=== PATIENT | male | born 1975 | race Caucasian/White ===

== ENCOUNTER 2019-12-26 11:48 | Outpatient (CLI) | payer OTHER, SELFPAY ==
--- NOTE | ~2019-12-26 | XR_ITS ---
EXAMINATION: XR ankle RT min 3V DATE: 12/26/2019 12:15 INDICATION: Right ankle pain. Injury. TECHNIQUE: 4 views of right ankle were obtained. COMPARISON: None. FINDINGS: Bone alignment is normal. No fracture. There is a 12 mm osteochondral lesion of medial davi r dome. There are enthesophytes at the posterior and plantar aspects of calcaneal tuberosity. IMPRESSION: 1. Osteochondral lesion of medial talar dome. Reviewed, dictated and finalized at location A.
== END 2019-12-26 11:49 | disposition home or self-care (01) ==
LOC: ANHIMG 11:59
PROVIDERS: PCP Family Medicine; Visit Provider Physician Assistant
DX: M25.571 Pain in right ankle and joints of right foot (principal)
CPT/HCPCS: 73610

== ENCOUNTER 2020-10-16 05:08 | Emergency (ER) | payer OTHER, SELFPAY ==
[2020-10-16] VITALS (14 sets, daily range): BP systolic 172–199; BP diastolic 91–119; PULSE 82–89; RESP 20; TEMP 36.2; O2SAT 90–97
--- NOTE | ~2020-10-16 | XR_ITS ---
XR abdomen/kub 1V DATE: 10/16/2020 06:57 INDICATION: Left flank pain TECHNIQUE: AP projection, 2 views COMPARISON: October 16, [address] abdomen pelvis FINDINGS: 8 mm calcified calculus is noted overlying the proximal left ureter at the L3 level. Approximately 4 mm calcified calculus overlies the left kidney. The psoas shadows are intact. No visceromegaly is evident. There are bilateral calcified pelvic phleboliths. No bowel obstruction is evident. Included skeletal structures are unremarkable. IMPRESSION: 8 mm calcified calculus overlying the left ureter at the L3-4 level Small nonobstructing left renal calcified calculus Reviewed, dictated and finalized at Location A. Reviewed, dictated and finalized at location A. GER HELPDESK
--- NOTE | ~2020-10-16 | CT_ITS ---
EXAMINATION: CT abdomen pelvis wo con DATE: 10/16/2020 05:53 INDICATION: Left flank pain TECHNIQUE: Computed tomography (CT) of the abdomen and pelvis was performed without intravenous contr ast. Automated exposure control and iterative reconstruction technique were employed. Exam dose: 120 0.86 mGy-cm total exam DLP. COMPARISON: 12/04/[address] abdomen pelvis FINDINGS: Mild atelectasis in the lower lung zones. Normal heart size. Coronary artery calcification. No pericardial or pleural effusion. Stable thickening of the distal esophageal wall since 12/04/2018. Hepatic steatosis. No apparent hepatic space-occupying mass lesion. No intrahepatic or extrahepatic b ile duct dilatation. The gallbladder is present. No pericholecystic fluid or stranding. Normal spleni c size. No pancreatic mass lesion, calcification or ductal dilatation. Normal morphology of the adrenal glands. There is left perinephric and periureteral stranding and moderate left hydronephrosis secondary to an obstructing 8 mm left ureteropelvic junction calculus. Nonobstructing 5 mm left renal calculus. Nonobstructing 4 mm right renal calculus. Prostate enlargement and calcifications. The urinary bladder is unremarkable. There is atherosclerotic calcification of the abdominal aorta but no aneurysm. No intraperitoneal or retroperitoneal or pelvic mass lesion or adenopathy or ascites. Normal appendix. Diverticulosis of the left colon; no CT evidence of diverticulitis. No bowel obstruction, bowel wall thickening, pneumatosis or intraperitoneal free air. Included skeletal structures are unremarkable. IMPRESSION: 8 mm obstructing left ureteropelvic junction calculus with moderate left hydronephrosis and perinephric and periureteral stranding Bilateral nephrolithiasis Diverticulosis of the colon Hepatic steatosis Reviewed, dictated and finalized at [facility]. Reviewed, dictated and finalized at location A. PULLER IMPRESSION: 8 mm obstructing left ureteropelvic junction calculus with moderat e left hydronephrosis and perinephric and periureteral stranding Bilateral nephrolithiasis Diverticulosis of the colon Hepatic steatosis
--- NOTE | 2020-10-16 05:23 | ED.ABDPAIN ---
HPI - Abdominal Pain General Chief Complaint: Urogenital-Male Stated Complaint: kidney stone left flank pain Time Seen by Provider: 10/16/20 05:12 Source: patient Mode of arrival: ambulatory Limitations: no limitations History of Present Illness HPI narrative: Patient is a 45-year-old male complaining of left flank pain, 9 out of 10, sharp, radiating to his left groin started this morning. Patient states he has similar episodes in the past history of kidney stones. Patient denies any chest pain, shortness of breath, abdominal pain, nausea, vomiting, diarrhea, fever or chills. Related Data Home Medications Medication Instructions Recorded Confirmed No Home Medications 10/16/20 10/16/20 Allergies Allergy/AdvReac Type Severity Reaction Status Date / Time No Known Allergies Allergy Verified 10/16/20 05:31 Review of Systems Review of Systems: All systems reviewed & are unremarkable except as noted in HPI and below Constitutional: Constitutional: Denies body ache(s), Denies chills, Denies excessive sweating, Denies fatigue, Denies fever(s), Denies headache(s), Denies lethargy, Denies malaise, Denies weakness and Denies weight loss Eyes: Eyes: Denies blurry vision, Denies change in vision and Denies loss of vision ENT: Denies dizziness, Denies ear discharge, Denies headache(s), Denies lip swelling, Denies epistaxis, Denies nasal congestion, Denies neck pain, Denies throat swelling and Denies tongue swelling Cardiovascular: Cardiovascular: Denies chest pain, Denies chest pain at rest, Denies chest pain with activity, Denies diaphoresis, Denies rapid heart rate, Denies edema, Denies irregular heart rhythm, Denies lightheadedness, Denies palpitations, Denies dyspnea and Denies dyspnea on exertion Respiratory: Respiratory: Denies chest congestion, Denies cough, Denies hemoptysis, Denies dyspnea and Denies dyspnea on exertion Gastrointestinal: Gastrointestinal: Denies abdominal pain, Denies melena, Denies hematochezia, Denies diarrhea, Denies nausea, Denies vomiting and Denies hematemesis Musculoskeletal: Musculoskeletal: Denies abnormal gait, Denies deformity, Denies joint swelling, Denies limited range of motion, Denies neck pain and Denies numbness Neurologic: Denies Abnormal speech present, Denies abnormal gait, Denies confusion, Denies dizziness, Denies headache(s), Denies focal weakness, Denies loss of vision, Denies numbness, Denies Other visual disturbances, Denies Sensory deficit (Neuro) and Denies weakness Psychiatric: Psychiatric: Denies confusion, Denies depression, Denies auditory hallucinations, Denies homicidal ideation and Denies suicidal ideation Endocrine: Endocrine: Denies cold intolerance, Denies excessive sweating, Denies fatigue, Denies heat intolerance and Denies palpitations Hematologic/Lymphatic: Hematologic/Lymphatic: Denies easy bleeding and Denies easy bruising Allergic/Immunologic: Allergic/Immunologic: Denies lip swelling, Denies throat swelling and Denies tongue swelling PMFSH Past Medical History Medical History Osteochondral defect of talus Family History Family History Sibling Diabetes mellitus Mother Family history of lung cancer Family history of malignant neoplasm of breast in first degree relative Social History Social History Smoking status: Former smoker Smoking end date: 09/12/91 Alcohol intake: never Exam Const: General: cooperative, healthy appearing, comfortable, no acute distress, well developed, alert and awake; No confusion Orientation/consciousness: oriented to person, oriented to place, oriented to time, patient oriented x3 and No confusion Limitations: no limitations HENMT: Head: normal to inspection, normocephalic and atraumatic Ears: hearing grossly normal bilaterally, TM normal on the right
[2020-10-16] MEDS: SODIUM CHLORIDE 0.9% IV 1,000 ML 999 ML IV CONT (05:30)
[2020-10-16] MEDS: KETOROLAC 30 MG/ML VIAL (*BKC) IV PUSH (05:31)
[2020-10-16 05:51] LABS: Anion Gap 10 mmol/L (8-16); Blood Urea Nitrogen 13 mg/dL (9-20); Calcium 9.2 mg/dL (8.4-10.2); Carbon Dioxide 29 mmol/L (22-30); Chloride 100 mmol/L (98-107); Estimated CRCL calculation 105 ml/min; Estimated Glomerular Filt Rate > 60; Glucose 162 mg/dL (75-110); Potassium 3.6 mmol/L (3.4-5.0); Sodium 139 mmol/L (137-145)
[2020-10-16 06:02] LABS: Basophils Absolute Auto 0.1 K/mm3 (0.0-0.1); Basophils Percent Auto 0.7 % (0.2-1.2); Eosinophils Absolute Auto 0.1 K/mm3 (0-0.3); Eosinophils Percent Auto 1.7 % (0-4.4); Hematocrit 50.5 % (42.0-52.0); Hemoglobin 17.5 g/dL (14.0-18.0); Immature Granulocyte Absolute 0.06 K/mm3 (0.00-0.031); Immature Granulocyte Percent A 0.7 % (0-0.5); Lymphocytes Absolute Auto 1.02 K/mm3 (0.9-3.2); Lymphocytes Percent Auto 12.7 % (18.3-44.2); Mean Corpuscular HGB Conc 34.7 g/dl (32-36); Mean Corpuscular Volume 95.1 fl (80-100); Monocytes Absolute Auto 0.6 K/mm3 (0.1-0.6); Monocytes Percent Auto 7.6 % (2.6-8.5); Neutrophils Absolute Auto 6.2 K/mm3 (1.3-6.7); Neutrophils Percent Auto 76.6 % (45.5-73.1); Platelet Count Result 166 k/mm3 (150-375); Red Blood Count 5.31 M/mm3 (4.6-6.20); Red Cell Distribution Width 12.2 % (11.5-14.5)
[2020-10-16] MEDS: HYDROmorphone HCL INJ (*CRX) 1 MG/ML SYR IV PUSH (06:35)
--- NOTE | 2020-10-16 06:51 | PC.NURSE ---
Patient taken to xray.
[2020-10-16 07:01] LABS: Add Urine Microscopic? YES; Appearance Urine Clear (Clear); Bilirubin Urine Negative (Negative); Blood Urine 3+ (Negative); Color Urine Yellow (Yellow); Glucose Urine UA Negative (Negative); Ketones Urine Negative (Negative); Leukocyte Esterase Ur Negative LEU/UL (Negative); Mucus Urine Rare /lpf; Nitrate Urine Negative (Negative); Protein Urine 2+ mg/dL (Negative); RBC Urine >75 /hpf (0-2); Specific Grav Ur 1.017 (1.001-1.035); Squamous Epithelial Cell Urine Occasional /hpf (Few); Urobilinogen Urine Negative mg/dL (<2.0); WBC Urine 0-3 /hpf
[2020-10-16] MEDS: TAMSULOSIN HCL 0.4 MG CAPSULE PO (07:15)
[2020-10-16] MEDS: HYDROcodone/acetaminophen (*CRX) 5-325 MG TABLET 2 TAB PO (07:15)
== END 2020-10-16 07:31 | disposition home or self-care (01) ==
PROVIDERS: Emergency Provider Emergency Medicine; PCP Family Medicine
DX: N13.9 Obstructive and reflux uropathy, unspecified (principal)
CPT/HCPCS: 36415; 74018; 74176; 80048; 81001; 85025; 96361; 96374; 96375; 99284; A9270; J1170; J1885; J7030

== ENCOUNTER 2020-10-16 10:46 | Day surgery (SDC) | payer OTHER, SELFPAY ==
[2020-10-16] VITALS (8 sets, daily range): BP systolic 133–148; BP diastolic 72–95; PULSE 74–100; RESP 13–16; TEMP 36.6–37.3; O2SAT 91–100; BMI 34.4
--- NOTE | ~2020-10-16 | XR_ITS ---
XR retrograde pyelo w/stent LT DATE: 10/16/2020 13:44 INDICATION: 8 mm obstructing left ureteropelvic junction calculus. Stent placement TECHNIQUE: 30.1 seconds fluoroscopy time 625.52 radcm2 COMPARISON: October 16/[address] abdomen pelvis FINDINGS: Calcified calculus is confirmed at the left renal pelvic junction. There is moderate left h ydronephrosis. A left internal urinary stent is placed IMPRESSION: Placement of left internal urinary stent Reviewed, dictated and finalized at [facility]. Reviewed, dictated and finalized at location A. 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
[2020-10-16] MEDS: LACTATED RINGERS 1,000 ML 30 ML IV CONT ×2 (12:20→14:26)
--- NOTE | 2020-10-16 12:27 | WPDANESEPPF ---
Anes - Initial Pre Proc Eval Procedure: Operation Date: 10/16/20 12:45 Proposed Procedures p Cystoscopy, Left Retrograde Pyelogram, Left Stent Placement - Joseph Mejia MD Date/Time: 10/16/20 12:27 Surgeon: Joseph Mejia MD Pre Op Diagnosis: Left Renal Stone Patient Data Age: 45 Gender: M Height: 5 ft 7 in Weight: 102.6 kg Last Vital Signs Temp 99.2 F 10/16/20 12:25 Pulse 100 10/16/20 12:25 Resp 16 10/16/20 12:25 BP 139/93 H 10/16/20 12:25 Pulse Ox 94 10/16/20 12:25 Allergies Allergy/AdvReac Type Severity Reaction Status Date / Time No Known Allergies Allergy Verified 10/16/20 11:59 Home Medications Medication Instructions Recorded Confirmed Type hydrocodone-acetaminophen 1 tablet PO Q6H PRN #12 tablet 10/16/20 10/16/20 Rx tamsulosin [Flomax] 0.4 mg PO DAILY #5 cap 10/16/20 10/16/20 Rx Patient hx anesthesia problems: none Family hx anesthesia problems: none PMFSH Past Medical History Medical History (Updated 10/16/20 @ 12:27 by Sang Carpenter MD) GERD (gastroesophageal reflux disease) [place]IR[place] (obstructive sleep apnea) Osteochondral defect of talus Family History Family History Sibling Diabetes mellitus Mother Family history of lung cancer Family history of malignant neoplasm of breast in first degree relative Social History Social History Smoking status: Never smoker Smoking end date: 09/12/91 Alcohol intake: never Living arrangements: with family Spiritual care concerns: No Anes - Eval Final PreProcedure Day of Procedure 10/16/20 12:27 Patient weight: obese Heart: regular rate and rhythm Lungs: clear to auscultation Airway: Mallampati scale class III Neurological: alert and oriented Last oral intake: >/= 8 hours ASA classification: III Emergent: no Anesthetic plan: proceed Anesthesia type and monitoring: general LMA and standard monitoring Informed Consent: The patient's anesthetic plan and its attendant risks and benefits were discussed with the patient/family/POA. Questions were solicited and answers provided to the satisfaction of the patient/family/POA.
--- NOTE | 2020-10-16 13:14 | PM.IMHP ---
H&P: HPI History of Present Illness Date/Time: 10/16/20 13:14 Chief Complaint: Obstructing left proximal ureteral calculus with hydronephrosis and renal colic Narrative: Balaji Davies is a 45 year old male who presented to the emergency room this morning with severe left flank pain. He was found to have an 8 mm left proximal ureteral obstructing stone. Unfortunately he was sent home in the presented to the office with persistent pain. He was given Toradol in the ER in this precludes in for lithotripsy. He now presents for cystoscopy left retrograde pyelogram left stent placement to relieve his pain. Review of Systems Review of Systems: All systems reviewed & are unremarkable except as noted in HPI and below PMFSH Past Medical History Medical History GERD (gastroesophageal reflux disease) [place] (obstructive sleep apnea) Osteochondral defect of talus Family History Family History Sibling Diabetes mellitus Mother Family history of lung cancer Family history of malignant neoplasm of breast in first degree relative Social History Social History Smoking status: Never smoker Smoking end date: 09/12/91 Alcohol intake: never Living arrangements: with family Spiritual care concerns: No Meds Home Medications and Allergies Home Medications Medication Instructions Recorded Confirmed Type hydrocodone-acetaminophen 1 tablet PO Q6H PRN #12 tablet 10/16/20 10/16/20 Rx tamsulosin [Flomax] 0.4 mg PO DAILY #5 cap 10/16/20 10/16/20 Rx Allergies Allergy/AdvReac Type Severity Reaction Status Date / Time No Known Allergies Allergy Verified 10/16/20 11:59 Vital Signs Vital Signs - 24 hr 10/16/20 12:25 Temperature 37.3 C Pulse Rate 100 Respiratory Rate 16 Blood Pressure 139/93 H Pulse Oximetry 94 Exam Const: General: No comfortable Orientation/consciousness: patient oriented x3 HENMT: Head: normal to inspection Eyes: General: appearance normal, both eyes and all related structures Chest: Chest palpation & inspection: normal inspection of the chest Resp: Effort & Inspection: normal respiratory effort Cardio: Rate: regular rate GI: Inspection: normal to inspection Skin: General skin exam: normal color Assessment and Plan Assessment and plan (1) Left ureteral calculus: Code(s): N20.1 - Calculus of ureter Status: Acute Assessment and Plan: Proceed with cystoscopy, left retrograde pyelogram , left stent placement
--- NOTE | 2020-10-16 13:17 | WPDHPUPDATE1 ---
History and Physical Update Update Date/Time: 10/16/20 13:17 History and Physical has been reviewed, including an updated exam of the patient. There are NO changes in the patient's condition. Risks, benefits, and alternatives have been discussed and questions answered. Patient agrees to proceed with procedure.
[2020-10-16] MEDS: ceFAZolin 2 GM/D5W 50 ML 2 GM/50 ML BAG IVPB (13:21)
[2020-10-16] MEDS: LIDOCAINE HCL 2% GEL UROJET 10 ML PKG MUCOUS MEM (13:26)
--- NOTE | 2020-10-16 13:42 | P.OP_ITS ---
Procedure Note - Detailed Date of procedure: 10/16/20 Pre-op diagnosis: Left Renal Stone Obstructing left proximal ureteral calculus with hydronephrosis Post-op diagnosis: same Procedure performed: Cystoscopy, left retrograde pyelogram, left ureteral stent placement 6 Palestinian contour Description of procedure: Patient is taken the operative suite and correctly identified. Once anesthesia was obtained he was placed in dorsal lithotomy position and prepped and draped usual sterile fashion. Twenty-two Palestinian scope was inserted in the bladder there is no tumors noted. The left ureteral orifice almost had the appearance of the ureterocele. We were able to manipulate a guidewire into the orifice up into the renal pelvis. The [place] was then inserted over the wire up to the renal pelvis and a pyelogram was performed to confirm placement of the stent. Six Palestinian contour stent was then placed over guidewire with the proximal end up in the upper pole the distal end coiled in the bladder. Bladder was drained 2% viscous lidocaine was inserted urethra patient is taken recovery stable condition. Will plan on an outpatient lithotripsy possibly next week Anesthesia: GLMA Surgeon: Joseph Mejia MD Drains: Yes Packing: No Pathology: none sent Complications: No immediate complications Condition: stable Disposition: PACU
[2020-10-16] MEDS: KETOROLAC 30 MG/ML VIAL (*BKC) IV PUSH (13:46)
== END 2020-10-16 15:30 | disposition home or self-care (01) ==
PROVIDERS: PCP Family Medicine; Visit Provider Urology
PROC: (CPT 52352; principal; 2020-10-16 12:45)
DX: N13.2 Hydronephrosis with renal and ureteral calculous obstruction (principal); G47.33 Obstructive sleep apnea (adult) (pediatric); K21.9 Gastro-esophageal reflux disease without esophagitis; E66.9 Obesity, unspecified; Z68.35 Body mass index [BMI] 35.0-35.9, adult
CPT/HCPCS: 52332; 36415; 74018; 74176; 74420; 80048; 81001; 85025; 96361; 96374; 96375; 99284; A9270; C1758; C1769; C2617; J0690; J1100; J1170; J1885; J2250; J2405; J2704; J7030; J7120; Q9966

== ENCOUNTER 2020-10-28 12:39 | Outpatient (CLI) | payer OTHER, SELFPAY ==
[2020-10-28 13:16] LABS: Prothrombin Time 14.2 Seconds (11.1-14.7)
[2020-10-28 13:17] LABS: Partial Thromboplastin Time 28.8 SECONDS (22.3-36.8)
== END 2020-10-28 12:40 | disposition home or self-care (01) ==
LOC: ANHSURGERY 12:42
PROVIDERS: PCP Family Medicine; Visit Provider Urology
DX: Z01.812 Encounter for preprocedural laboratory examination (principal); N20.1 Calculus of ureter
CPT/HCPCS: 36415; 85610; 85730; 87086

== ENCOUNTER → 2020-10-29 00:38 | Outpatient (CLI) | payer OTHER, SELFPAY ==
[2020-10-29 19:41] LABS: SARS-CoV-2 RNA PCR Negative
== END ==
PROVIDERS: PCP Family Medicine; Visit Provider Urology
DX: Z01.812 Encounter for preprocedural laboratory examination (principal); Z20.822 Contact with and (suspected) exposure to COVID-19
CPT/HCPCS: C9803; U0003; U0005

== ENCOUNTER 2020-10-31 02:09 | Day surgery (SDC) | payer OTHER, SELFPAY ==
[2020-10-28 12:15] VITALS: BMI 36.0
[2020-10-31] VITALS (7 sets, daily range): BP systolic 143–158; BP diastolic 96–106; PULSE 72–82; RESP 14–16; TEMP 36.1–36.6; O2SAT 94–100
--- NOTE | ~2020-10-31 | XR_ITS ---
EXAMINATION: XR abdomen/kub 1V INDICATION: Left-sided urolithiasis TECHNIQUE: Supine views of the abdomen were obtained on 2 radiographs. COMPARISON: 10/16/2020 FINDINGS: A left internal ureteral stent has been placed in expected position. An 8 mm stone previous ly seen in the mid ureter is now identified in the lower pole of the left kidney. No stones are ident ified along the course of the urinary stent. There are multiple phleboliths of the pelvis. The bowel gas pattern is normal. IMPRESSION: 1. 8 mm stone in the lower pole of the left kidney. Internal ureteral stent in expected position. Reviewed, dictated and finalized at location A. [employer]
--- NOTE | 2020-10-31 07:19 | WPDHPUPDATE1 ---
History and Physical Update Update Date/Time: 10/31/20 07:19 History and Physical has been reviewed, including an updated exam of the patient. There are NO changes in the patient's condition. Risks, benefits, and alternatives have been discussed and questions answered. Patient agrees to proceed with procedure. ESWL left renal calculus
[2020-10-31] MEDS: LACTATED RINGERS 1,000 ML 30 ML IV CONT (07:36)
--- NOTE | 2020-10-31 07:51 | WPDANESEPPF ---
Anes - Initial Pre Proc Eval Procedure: Operation Date: 10/31/20 08:30 Proposed Procedures p Left Renal Extracorporeal Shock Wave Lithotripsy With Possible Left Stent Removal/Replacement - Joseph Mejia MD Date/Time: 10/31/20 07:51 Surgeon: Joseph Mejia MD Pre Op Diagnosis: Left Renal Stone Patient Data Age: 45 Gender: M Height: 5 ft 7 in Weight: 101.5 kg Last Vital Signs Temp 97.8 F 10/31/20 06:59 Pulse 80 10/31/20 06:59 Resp 14 10/31/20 06:59 BP 146/106 H 10/31/20 06:59 Pulse Ox 97 10/31/20 06:59 Allergies Allergy/AdvReac Type Severity Reaction Status Date / Time No Known Allergies Allergy Verified 10/31/20 07:13 Home Medications Medication Instructions Recorded Confirmed Type tamsulosin [Flomax] 0.4 mg PO DAILY #5 cap 10/16/20 10/31/20 Rx tramadol 50 mg PO PRN 10/28/20 10/31/20 History Patient hx anesthesia problems: none Family hx anesthesia problems: none [facility] Past Medical History Medical History GERD (gastroesophageal reflux disease) [place] (obstructive sleep apnea) Osteochondral defect of talus Family History Family History Sibling Diabetes mellitus Mother Family history of lung cancer Family history of malignant neoplasm of breast in first degree relative Social History Social History Smoking status: Never smoker Smoking end date: 09/12/91 Additional smoking assessment comments: BRIEF TIME IN THE 80'S Alcohol intake: never Living arrangements: with family Gender identity (if verbalized by the patient): Male Spiritual care concerns: No Anes - Eval Final PreProcedure Day of Procedure 10/31/20 07:51 Patient weight: obese Heart: regular rate and rhythm Lungs: clear to auscultation Airway: Mallampati scale class III Neurological: alert and oriented Last oral intake: >/= 8 hours ASA classification: III Emergent: no Anesthetic plan: proceed Anesthesia type and monitoring: general LMA and standard monitoring Informed Consent: The patient's anesthetic plan and its attendant risks and benefits were discussed with the patient/family/POA. Questions were solicited and answers provided to the satisfaction of the patient/family/POA.
[2020-10-31] MEDS: ceFAZolin 2 GM/D5W 50 ML 2 GM/50 ML BAG IVPB (08:25)
--- NOTE | 2020-10-31 09:03 | PM.PROC ---
Procedure Note - Detailed Date of procedure: 10/31/20 Pre-op diagnosis: Left Renal Stone Post-op diagnosis: same Procedure performed: Lithotripsy of left renal calculus 7 8 mm Description of procedure: Patient is taken the operative suite and correctly identified. Once anesthesia was obtained the stone was localized in both planes. Two thousand five hundred shocks were given the stone. Patient tolerated procedure well without any complications taken recovery room stable condition. He will follow up in 7-10 days with a KUB. Anesthesia: GLMA Surgeon: Joseph Mejia MD Drains: Yes Packing: No Pathology: none sent Complications: No immediate complications Condition: stable Disposition: PACU
--- NOTE | 2020-10-31 09:55 | SUR.PHASEI ---
0988; DR CUEVAS AT BEDSIDE. REVIEWING VS, BLOOD PRESSURE. STATES PT NEEDS TO FOLLOW UP WITH PCP REGARDING POSSIBLE UNDIAGNOSED HTN.
--- NOTE | 2020-10-31 10:00 | SUR.PHASEI ---
PT AWAKE, DENIES PAIN. READY FOR TRANSFER
== END 2020-10-31 10:52 | disposition home or self-care (01) ==
PROVIDERS: PCP Family Medicine; Visit Provider Urology
PROC: (CPT 50590; principal; 2020-10-31 08:30)
DX: N20.2 Calculus of kidney with calculus of ureter (principal); G47.33 Obstructive sleep apnea (adult) (pediatric); K21.9 Gastro-esophageal reflux disease without esophagitis; E66.9 Obesity, unspecified; Z68.35 Body mass index [BMI] 35.0-35.9, adult
CPT/HCPCS: 50590; 36415; 74018; 85610; 85730; 87086; C9803; J0690; J1100; J2250; J2405; J2704; J3010; J7120; U0003; U0005

== ENCOUNTER 2020-11-13 11:07 | Outpatient (CLI) | payer OTHER, SELFPAY ==
--- NOTE | ~2020-11-13 | XR_ITS ---
EXAMINATION: XR abdomen/kub 1V DATE: 11/13/2020 11:25 INDICATION: Left ureteral stone. TECHNIQUE: A supine view of the abdomen on 2 radiographs was obtained. COMPARISON: CT abdomen and pelvis 10/16/20, abdomen radiographs 10/31/2020 FINDINGS: There are no dilated loops of bowel. There is a left internal ureteral stent in expected po sition. There are phleboliths in the pelvis. There are least 3 stones in distal left ureter measuring up to approximately 5 mm. IMPRESSION: 1. Stones in distal left ureter with left internal ureteral stent in expected position. Reviewed, dictated and finalized at location A. 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 Stones in distal left ureter with left internal ureteral stent in expected p osition.
== END 2020-11-13 11:08 | disposition home or self-care (01) ==
LOC: ANHIMG 11:16
PROVIDERS: PCP Family Medicine; Visit Provider Urology
DX: N20.1 Calculus of ureter (principal)
CPT/HCPCS: 74018

== ENCOUNTER 2020-11-19 11:54 | Outpatient (CLI) | payer OTHER, SELFPAY ==
--- NOTE | ~2020-11-19 | XR_ITS ---
EXAMINATION: XR abdomen/kub 1V INDICATION: Left ureteral stone TECHNIQUE: Supine views of the abdomen were obtained on 2 radiographs. COMPARISON: 11/13/2020 FINDINGS: A left internal ureteral stent is in expected position. Again noted are at least three ston es in the distal left ureter, measuring up to 5 mm, adjacent to the stent. No additional urolithiasis is identified. There are phleboliths of the pelvis. The bowel gas pattern is normal. IMPRESSION: 1. Left internal ureteral stent in expected position with unchanged stones in the distal ureter adjac ent to the stent. Reviewed, dictated and finalized at location A. D CLEANER IMPRESSION: 1. Left internal ureteral stent in expected position with unchanged stones in t he distal ureter adjacent to the stent.
== END 2020-11-19 11:55 | disposition home or self-care (01) ==
PROVIDERS: PCP Family Medicine; Visit Provider Urology
DX: N20.1 Calculus of ureter (principal)
CPT/HCPCS: 74018

== ENCOUNTER 2020-12-03 12:58 | Outpatient (CLI) | payer OTHER, SELFPAY | END 2020-12-03 12:59 | disposition home or self-care (01) | LOC: ANHSURGERY 13:11 | PROVIDERS: PCP Family Medicine; Visit Provider Urology | DX: Z01.812 Encounter for preprocedural laboratory examination (principal); N20.1 Calculus of ureter | CPT/HCPCS: 87086 ==

== ENCOUNTER → 2020-12-06 00:25 | Outpatient (CLI) | payer OTHER, SELFPAY ==
[2020-12-06 20:23] LABS: SARS-CoV-2 RNA PCR Negative
== END ==
PROVIDERS: PCP Family Medicine; Visit Provider Urology
DX: Z01.812 Encounter for preprocedural laboratory examination (principal); Z20.822 Contact with and (suspected) exposure to COVID-19
CPT/HCPCS: C9803; U0003; U0005

== ENCOUNTER 2020-12-09 01:51 | Day surgery (SDC) | payer OTHER, SELFPAY ==
[2020-12-01 12:00] VITALS: BMI 35.2
[2020-12-09] VITALS (9 sets, daily range): BP systolic 129–154; BP diastolic 86–103; PULSE 68–83; RESP 14–18; TEMP 36.6–37.2; O2SAT 92–99
--- NOTE | ~2020-12-09 | XR_ITS ---
EXAMINATION: XR retrograde pyelo w/stent LT EXAM DATE: 12/09/2020 14:23 INDICATION: LT Retro And Lt Stent Exchange, Lt Ureteral Stone Extraction. TECHNIQUE: Fluoroscopy used during XR retrograde pyelo w/stent LT performed by Dr. Joseph ochoa MD. Total fluoroscopic time of 0.4 minutes. A total of 8 images obtained for the exam. The D AP for this procedure was 458 radcm2. FINDINGS: The left ureter was cannulated, injected. A double-J ureteral stent was placed. Correlate with procedure note. IMPRESSION: Fluoroscopy used during XR retrograde pyelo w/stent LT. Reviewed, dictated and finalized at location A.
--- NOTE | 2020-12-09 12:41 | WPDHPUPDATE1 ---
History and Physical Update Update Date/Time: 12/09/20 12:41 History and Physical has been reviewed, including an updated exam of the patient. There are NO changes in the patient's condition. Risks, benefits, and alternatives have been discussed and questions answered. Patient agrees to proceed with procedure.
--- NOTE | 2020-12-09 13:18 | WPDANESEPPF ---
Anes - Initial Pre Proc Eval Procedure: Operation Date: 12/09/20 14:15 Proposed Procedures p Cystoscopy, Left Retrograde Pyelogram, Left Ureteroscopy with Stone Extraction, Possible Left Stent Placement, - Joseph Mejia MD s Possible Holmium Laser Procedure - Joseph Mejia MD Date/Time: 12/09/20 13:18 Surgeon: Joseph Mejia MD Pre Op Diagnosis: left ureteral stone Patient Data Age: 45 Gender: M Height: 5 ft 7 in Weight: 102 kg Allergies Allergy/AdvReac Type Severity Reaction Status Date / Time No Known Allergies Allergy Verified 12/09/20 12:36 Patient hx anesthesia problems: none Family hx anesthesia problems: none PMFSH Past Medical History Medical History GERD (gastroesophageal reflux disease) [place] (obstructive sleep apnea) Osteochondral defect of talus Family History Family History Sibling Diabetes mellitus Mother Family history of lung cancer Family history of malignant neoplasm of breast in first degree relative Social History Social History Years smoked: 1 Smoking status: Former smoker Smoking end date: 09/12/90 Additional smoking assessment comments: BRIEF TIME IN THE 80'S Alcohol intake: current Alcohol use details: 1 EVERY COUPLE MONTHS Substance use: never Substance use type: does not use Living arrangements: with family Gender identity (if verbalized by the patient): Male Spiritual care concerns: No Anes - Eval Final PreProcedure Day of Procedure 12/09/20 13:18 Patient weight: obese Heart: regular rate and rhythm Lungs: clear to auscultation Airway: Mallampati scale class II Neurological: alert and oriented Last oral intake: >/= 8 hours ASA classification: III Emergent: no Anesthetic plan: proceed Anesthesia type and monitoring: general LMA and standard monitoring Informed Consent: The patient's anesthetic plan and its attendant risks and benefits were discussed with the patient/family/POA. Questions were solicited and answers provided to the satisfaction of the patient/family/POA.
[2020-12-09] MEDS: LACTATED RINGERS 1,000 ML 30 ML IV CONT ×2 (13:36→15:21)
--- NOTE | 2020-12-09 14:23 | PM.PROC ---
Procedure Note - Detailed Date of procedure: 12/09/20 Pre-op diagnosis: left ureteral stone Post-op diagnosis: same Procedure performed: Cystoscopy, left stent removal, left retrograde pyelogram, left ureteroscopy with stone extraction, left stent replacement 4.8 [place] contour Description of procedure: Patient is taken the operative suite and correctly identified. Once anesthesia was obtained he was placed in dorsal lithotomy position and prepped and draped usual sterile fashion. Twenty-two [place] African scope inserted in the bladder. The prior stent was brought out to the meatus. Guidewire was inserted through the stent. Rigid ureteroscopy was then performed. Patient had approximately 7-8 stone fragments in the ureter distally as well as in the mid ureter. These were retrieved using an escape basket. Reinspection of the ureter revealed no residual stones. Pyelogram was performed to confirm placement of the stent. 4.8 [place] contour stent was then placed with the proximal end coiled in the renal pelvis and the distal in the bladder. Bladder was drained. 2% viscous lidocaine was inserted urethra patient was taken recovery stable condition. He will follow up in a week's time for stent removal. Anesthesia: GLMA Surgeon: Joseph Mejia MD Drains: Yes Packing: No Pathology: yes Complications: No immediate complications Condition: stable Disposition: PACU
[2020-12-09] MEDS: oxyCODONE HCL (*CRX) 5 MG TAB IR PO (15:47)
== END 2020-12-09 16:28 | disposition home or self-care (01) ==
PROVIDERS: PCP Family Medicine; Visit Provider Urology
PROC: (CPT 52352; principal; 2020-12-09 14:15)
DX: N20.1 Calculus of ureter (principal); K21.9 Gastro-esophageal reflux disease without esophagitis; G47.33 Obstructive sleep apnea (adult) (pediatric); Z87.891 Personal history of nicotine dependence; E66.8 Other obesity; Z68.34 Body mass index [BMI] 34.0-34.9, adult
CPT/HCPCS: 52352; 52332; 74420; 82365; 87086; 88300; A9270; C1758; C1769; C2617; C9803; J0690; J1100; J2405; J2704; J3010; J7120; Q9966; U0003; U0005

== ENCOUNTER 2021-04-16 10:03 | Emergency (ER) | payer OTHER, SELFPAY ==
[2021-04-16] VITALS (8 sets, daily range): BP systolic 125–189; BP diastolic 83–128; PULSE 62–88; RESP 11–19; TEMP 36.7–37.1; O2SAT 95–100
--- NOTE | ~2021-04-16 | CT_ITS ---
EXAMINATION: CT abdomen pelvis w con DATE: 04/16/2021 10:53 INDICATION: Generalized abdominal pain, nausea and vomiting TECHNIQUE: Computed tomography (CT) of the abdomen and pelvis was performed with 100 mL Omnipaque-350 intravenous contrast. Automated exposure control and iterative reconstruction technique were employe d. The dose-length product was 940.56 mGy-cm. COMPARISON: 10/16/20 FINDINGS: No interval change since 2019 in a couple 5 mm noncalcified granuloma in the bilateral lower lobes. H eart size is normal. No pericardial or pleural effusion. Liver, gallbladder, pancreas and bilateral a drenal glands are normal. Mild splenomegaly measuring 14.3 cm caudal length. No ureteral stones or hy dronephrosis. Small bilateral renal cysts the largest on the right measuring 7 mm. 3 mm nonobstructin g right renal stone. There is mild colonic diverticulosis with a sigmoid predominance. There is no a djacent inflammatory change to suggest diverticulitis. Normal small bowel and appendix. Moderate thor acic and mild lumbar spondylosis with chronic mild anterior wedging at T11 and T12. IMPRESSION: 1. Nonobstructing 3 mm right renal stone. No acute intra-abdominal/pelvic process. 2. Mild diverticulosis.. Reviewed, dictated and finalized at location A. IMPRESSION: 1. Nonobstructing 3 mm right renal stone. No acute intra-abdominal/pelvic proce ss. 2. Mild diverticulosis..
--- NOTE | 2021-04-16 10:12 | ED.ABDPAIN ---
HPI - Abdominal Pain General Chief Complaint: Abdominal Pain Stated Complaint: abd pain/cramping, N & V Time Seen by Provider: 04/16/21 10:10 History of Present Illness HPI narrative: Patient is a 38-year-old male with history of hypertension and anxiety who comes emergency room today complaining of generalized abdominal pain for the last 1 week. The pain is constant. Made worse with movements of his trunk and with eating. Admits to nausea with vomiting. Has had a couple loose bowel movements and notes that it feels like he constantly needs to have a bowel movement. Was feeling feverish yesterday but no documented temperatures at home. Rarely drinks alcohol. Denies any marijuana use or any other illicit drug use. Admits to previous history of kidney stones but this pain feels a little different. Tried some antacid medicines and some ibuprofen at home with no relief. Related Data Allergies Allergy/AdvReac Type Severity Reaction Status Date / Time No Known Allergies Allergy Verified 04/16/21 10:12 Review of Systems Constitutional: Constitutional: Reports as per HPI, Denies fever(s), Denies night sweats and Denies weakness Cardiovascular: Cardiovascular: Denies chest pain, Denies edema, Denies leg edema, Denies dyspnea and Denies orthopnea Respiratory: Respiratory: Denies cough and Denies dyspnea Gastrointestinal: Gastrointestinal: Reports as per HPI, Reports abdominal pain, Denies coffee ground emesis, Denies constipation, Reports loose stools, Reports nausea, Reports vomiting and Denies hematemesis Genitourinary: Genitourinary: Reports no additional male genitourinary complaints Musculoskeletal: Musculoskeletal: Denies abnormal gait, Denies back pain, Denies numbness and Denies tingling Neurologic: Denies Abnormal speech present, Denies abnormal gait, Denies numbness, Denies tingling and Denies weakness Psychiatric: Psychiatric: Denies homicidal ideation and Denies suicidal ideation [facility] Past Medical History Medical History GERD (gastroesophageal reflux disease) VIR[place]IE (obstructive sleep apnea) Osteochondral defect of talus Family History Family History Sibling Diabetes mellitus Mother Family history of lung cancer Family history of malignant neoplasm of breast in first degree relative Social History Social History (Updated 04/09/21 @ 16:18 by Roxy Cornelius MA) Years smoked: 1 Smoking status: Former smoker Smoking end date: 09/12/90 Additional smoking assessment comments: BRIEF TIME IN THE 80'S Alcohol intake: current Alcohol use details: 1 EVERY COUPLE MONTHS Substance use: never Substance use type: does not use Gender identity (if verbalized by the patient): Male Spiritual care concerns: No Exam Narrative: Pleasant, uncomfortable appearing Const: General: cooperative, healthy appearing, no acute distress, well developed, alert, awake and Physically active; No comfortable Orientation/consciousness: patient oriented x3 HENMT: Head: normal to inspection, normocephalic and atraumatic Ears: external ears normal General nose exam: Normal external nose present Eyes: Pupils: Equal, round and reactive pupils present EOM: EOMs intact bilaterally Neck: Neck: normal visual inspection Chest: Chest palpation & inspection: normal inspection of the chest and no tenderness Resp: Effort & Inspection: normal respiratory effort and able to speak in complete sentences Auscultation: clear to auscultation bilaterally Cardio: Rate: regular rate Rhythm: regular rhythm GI: Inspection: normal to inspection GI Palp: Yes abdominal tenderness, No Guarding due to palpation present (GI), No Rigid due to palpation and Yes Other GI palpation findings present (Generalized abdominal tenderness to palpation) : General: Yes no CVA tenderness Back/Spine/Pelvis: Back: no CVA tenderne
[2021-04-16 10:23] LABS: Basophils Absolute Auto 0.1 K/mm3 (0.0-0.1); Basophils Percent Auto 1.3 % (0.2-1.2); Eosinophils Absolute Auto 0.3 K/mm3 (0-0.3); Eosinophils Percent Auto 2.9 % (0-4.4); Hematocrit 54.3 % (42.0-52.0); Hemoglobin 18.7 g/dL (14.0-18.0); Immature Granulocyte Absolute 0.04 K/mm3 (0.00-0.031); Immature Granulocyte Percent A 0.4 % (0-0.5); Lymphocytes Absolute Auto 1.78 K/mm3 (0.9-3.2); Lymphocytes Percent Auto 17.2 % (18.3-44.2); Mean Corpuscular HGB Conc 34.4 g/dl (32-36); Mean Corpuscular Hemoglobin 32.2 pg (26-34); Mean Corpuscular Volume 93.6 fl (80-100); Mean Platelet Volume 10.3 fl (7.4-10.4); Monocytes Absolute Auto 0.7 K/mm3 (0.1-0.6); Monocytes Percent Auto 6.8 % (2.6-8.5); Neutrophils Absolute Auto 7.4 K/mm3 (1.3-6.7); Neutrophils Percent Auto 71.4 % (45.5-73.1); Platelet Count Result 236 k/mm3 (150-375); Red Cell Distribution Width 12.2 % (11.5-14.5); White Blood Count 10.3 K/mm3 (4.5-10.0)
[2021-04-16 10:32] LABS: Alanine Aminotransferase 155 U/L (4-50); Albumin Level 4.9 g/dL (3.5-5.1); Alkaline Phosphatase 75 U/L (38-126); Anion Gap 10 mmol/L (8-16); Aspartate Amino Transferase 86 U/L (17-59); Bilirubin,Total 0.8 mg/dL (0.2-1.3); Blood Urea Nitrogen 11 mg/dL (9-20); Calcium 10.2 mg/dL (8.4-10.2); Carbon Dioxide 27 mmol/L (22-30); Chloride 102 mmol/L (98-107); Estimated CRCL calculation 99 ml/min; Estimated Glomerular Filt Rate > 60; Glucose 120 mg/dL (65-110); Lipase 98 U/L (23-300); Potassium 4.2 mmol/L (3.4-5.0); Sodium 139 mmol/L (137-145)
[2021-04-16 10:54] LABS: Add Urine Microscopic? YES; Appearance Urine Clear (Clear); Bilirubin Urine Negative (Negative); Blood Urine Negative (Negative); Color Urine Yellow (Yellow); Glucose Urine UA Negative (Negative); Ketones Urine Negative (Negative); Leukocyte Esterase Ur Negative LEU/UL (Negative); Mucus Urine Rare /lpf; Nitrate Urine Negative (Negative); Protein Urine 1+ mg/dL (Negative); Squamous Epithelial Cell Urine Rare /hpf (Few); Urobilinogen Urine Negative mg/dL (<2.0); WBC Urine 0-3 /hpf
[2021-04-16] MEDS: MORPHINE SULFATE (*CRX) 4 MG/ML INJ IV PUSH (11:11)
[2021-04-16] MEDS: ONDANSETRON INJ 4 MG/2 ML VIAL IV PUSH (11:13)
[2021-04-16] MEDS: FAMOTIDINE 20 MG/2 ML VIAL IV PUSH (11:15)
[2021-04-16] MEDS: BELLADONNA ALK/PHENOB ELIX 10 ML, MAG HYDROX/ALUMINUM HYD/SIMETH 30 ML, LIDOCAINE HCL 2... PO (13:52)
[2021-04-16] MEDS: KETOROLAC 15 MG/ML VIAL (*BKC) IV PUSH (13:53)
[2021-04-16] MEDS: PANTOPRAZOLE SODIUM IV 40 MG VIAL IV PUSH (13:53)
[2021-04-16 14:01] LABS: Lactic Acid Reflex 0.9 mmol/L (0.7-2.1)
[2021-04-18 02:02] LABS: SARS-CoV-2 RNA PCR Negative
== END 2021-04-16 15:20 | disposition home or self-care (01) ==
PROVIDERS: Physician Assistant Medical; Emergency Provider Emergency Medicine; PCP Family Medicine
DX: K29.00 Acute gastritis without bleeding (principal); Z20.822 Contact with and (suspected) exposure to COVID-19; I10 Essential (primary) hypertension; Z87.442 Personal history of urinary calculi; K21.9 Gastro-esophageal reflux disease without esophagitis; G47.33 Obstructive sleep apnea (adult) (pediatric); Z87.891 Personal history of nicotine dependence; K57.90 Diverticulosis of intestine, part unspecified, without perforation or abscess without bleeding; N20.0 Calculus of kidney
CPT/HCPCS: 36415; 74177; 80053; 81001; 83605; 83690; 85025; 96374; 96375; 99284; A9270; C9113; C9803; J1885; J2270; J2405; J3010; Q9967; U0003; U0005

== ENCOUNTER 2024-05-26 00:58 | Emergency (ER) | payer OTHER, SELFPAY ==
--- NOTE | ~2024-05-26 | CT_ITS ---
EXAMINATION: CT abdomen pelvis w con DATE: 05/26/2024 02:28 INDICATION: Left lower quadrant abdominal pain, nausea and vomiting. TECHNIQUE: Computed tomography (CT) of the abdomen and pelvis was performed with 100 mL Omnipaque-350 intravenous contrast. Automated exposure control and iterative reconstruction technique were employe d. The dose-length product was 1002.82 mGy-cm. COMPARISON: 04/16/2021 FINDINGS: There are 6 mm nodules in both the left and right lower lobes. Scattered discoid atelectasis in the b ilateral lower lungs. Heart size is normal. Atherosclerotic coronary artery calcific lesion. No peric ardial or pleural effusion. Hepatomegaly with diffuse hepatic steatosis. 1.2 cm cyst in the right hep atic lobe. Gallbladder, pancreas and bilateral adrenal glands are normal. Splenomegaly measuring 20 x 20 x 11 cm. There is mild stranding surrounding a geographic region of hypoenhancement in the porcelain enameler ior spleen without associated volume loss suspicious for acute infarct. Bilateral nonobstructing neph rolithiasis with 5 stones measuring up to 3 mm in the right kidney and a couple 1-2 mm stones in the left kidney. Bilateral ureters and bladder are normal. There is mild colonic diverticulosis with a si gmoid predominance. There is no adjacent inflammatory change to suggest diverticulitis. Small bowel a nd appendix are normal. No free intraperitoneal gas or fluid. No pathologically enlarged abdominal or pelvic lymphadenopathy. Likely physiologic minimal to mild anterior wedging at T11-L1. Moderate thor acic and mild lumbar spondylosis. IMPRESSION: 1. Splenomegaly with small likely acute splenic wedge infarct involving approximately 5% of the splen ic volume. 2. Hepatomegaly with diffuse hepatic steatosis. 3. Bilateral nonobstructing nephrolithiasis. Reviewed, dictated and finalized at location A. IMPRESSION: 1. Splenomegaly with small likely acute splenic wedge infarct involving approxi mately 5% of the splenic volume. 2. Hepatomegaly with diffuse hepatic steatosis. 3. Bilateral nonobstructing nephrolithiasis.
--- NOTE | ~2024-05-26 | CT_ITS ---
EXAMINATION: CTA chest PE protocol DATE: 05/26/2024 03:32 INDICATION: Shortness of breath. Left-sided chest pain. TECHNIQUE: Computed tomography (CT) pulmonary angiogram of the chest was performed with 100 mL Omnipa que-350 intravenous contrast. Additional 3D reconstructions utilizing coronal maximum intensity proje ction (MIP) were performed. Automated exposure control and iterative reconstruction technique were em ployed. The dose-length product was 701.27 mGy-cm. COMPARISON: 04/16/2021 FINDINGS: No pulmonary embolism. Sensitivity mildly decreased in the smaller subsegmental pulmonary arteries du e to some motion artifact primarily at the lower lungs. There is scattered discoid atelectasis in the bilateral lower lungs. There are a couple 6 mm pulmonary nodules in the right and left lower lobes, unchanged since 04/16/2021 consistent with old granulomatous disease. No pneumonia, pulmonary edema or pleural effusion. Heart size is normal. Small amount of atherosclerotic coronary artery calcific lesi on. No pericardial effusion. Thoracic aorta is normal in caliber with no dissection. No pathologicall y enlarged thoracic lymphadenopathy. Diffuse hepatic steatosis. Again seen is splenomegaly with a sma ll posterior splenic infarct. Moderate thoracic spondylosis. IMPRESSION: 1. No pulmonary embolism. 2. Scattered atelectasis in bilateral lower lungs with no other acute cardiopulmonary disease. 3. Splenomegaly with splenic infarct. Reviewed, dictated and finalized at location A. IMPRESSION: 1. No pulmonary embolism. 2. Scattered atelectasis in bilateral lower lungs with no other acute cardiopul monary disease. 3. Splenomegaly with splenic infarct.
[2024-05-26 01:22] VITALS: BP 138/96; PULSE 102; RESP 20; TEMP 36.9; O2SAT 97
[2024-05-26 01:42] LABS: Hemoglobin 15.5 g/dL (14.0-18.0); Mean Corpuscular HGB Conc 34.4 g/dl (32-36); Mean Corpuscular Hemoglobin 32.6 pg (26-34); Mean Corpuscular Volume 94.5 fl (80-100); Mean Platelet Volume 9.9 fl (7.4-10.4); Platelet Count Result 143 k/mm3 (150-375); Red Blood Count 4.76 M/mm3 (4.6-6.20); Red Cell Distribution Width 12.7 % (11.5-14.5)
[2024-05-26 01:43] LABS: Add Urine Microscopic? YES; Appearance Urine Clear (Clear); Bilirubin Urine Negative (Negative); Blood Urine Negative (Negative); Color Urine Dark Yellow (Yellow); Glucose Urine UA Negative (Negative); Ketones Urine Negative (Negative); Leukocyte Esterase Ur Negative LEU/UL (Negative); Nitrate Urine Negative (Negative); Protein Urine Negative (Negative); Specific Grav Ur 1.022 (1.001-1.035); pH Urine 5.5 (5.0-9.0)
[2024-05-26 01:51] LABS: Alanine Aminotransferase 79 U/L (6-50); Albumin Level 3.9 g/dL (3.5-5.1); Alkaline Phosphatase 76 U/L (38-126); Anion Gap 9 mmol/L (4-12); Aspartate Amino Transferase 96 U/L (17-59); Bilirubin,Total 1.2 mg/dL (0.2-1.3); Blood Urea Nitrogen 11 mg/dL (9-20); Calcium 8.4 mg/dL (8.4-10.2); Carbon Dioxide 27 mmol/L (22-30); Chloride 100 mmol/L (98-107); Estimated CRCL calculation 96 ml/min; Estimated Glomerular Filt Rate > 60; Glucose 112 mg/dL (65-110); Lipase 93 U/L (23-300); Sodium 136 mmol/L (137-145)
--- NOTE | 2024-05-26 02:13 | ED.ABDPAIN ---
HPI - Abdominal Pain General Chief Complaint: Abdominal Pain Stated Complaint: abd pain Time Seen by Provider: 05/26/24 01:07 History of Present Illness HPI narrative: patient having almost 2 weeks of left lower quadrant pain, nausea, no constipation or diarrhea, no history of diverticulitis, does have history of kidney stones, no dysuria Related Data Allergies Allergy/AdvReac Type Severity Reaction Status Date / Time No Known Allergies Allergy Verified 05/26/24 01:34 Review of Systems Review of Systems: All systems reviewed & are unremarkable except as noted in HPI and below PMFSH Past Medical History Medical History GERD (gastroesophageal reflux disease) IFG (impaired fasting glucose) VIR[place]IE (obstructive sleep apnea) Osteochondral defect of talus Family History Family History Sibling Diabetes mellitus Mother Family history of lung cancer Family history of malignant neoplasm of breast in first degree relative Social History Social History Years smoked: 1 Smoking status: Never smoker Smoking end date: 09/12/90 Additional smoking assessment comments: BRIEF TIME IN THE 80'S Alcohol intake: current Alcohol use details: 1 EVERY COUPLE MONTHS Substance use: never Substance use type: does not use Living arrangements: with family Occupation/Education: other Gender identity (if verbalized by the patient): Male Spiritual care concerns: No Exam Narrative: EXAMINATION OF ORGAN SYSTEMS/BODY AREAS: Constitutional: Vital signs per nursing GENERAL:[No acute distress, non-toxic appearing.] HEAD: Normal with no signs of head trauma. EYES: EOMI, conjunctiva normal ENT: Hearing grossly intact LUNGS: Nonlabored breathing. HEART: slightly tachycardic ABD: [Soft], very mild tenderness to left abdomen EXT: Normal range of motion SKIN: [No rashes or lesions.] NEURO: [Alert and oriented x 3. No gross focal sensory or strength deficits.] PSYCH: Normal affect Course Vital Signs Vital signs: Vital Signs Temperature 98.4 F 05/26/24 01:22 Pulse Rate 102 H 05/26/24 01:22 Respiratory Rate 20 05/26/24 01:22 Blood Pressure 138/96 H 05/26/24 01:22 Pulse Oximetry 97 05/26/24 01:22 Oxygen Delivery Room Air 05/26/24 01:22 Temperature 98.4 F 05/26/24 01:22 Pulse Rate 93 05/26/24 04:27 Respiratory Rate 16 05/26/24 04:27 Blood Pressure 132/94 H 05/26/24 04:27 Pulse Oximetry 97 05/26/24 04:27 Oxygen Delivery Room Air 05/26/24 01:22 MDM - Abdominal Pain MDM Narrative Medical decision making narrative: Patient presents was left-sided abdominal pain, some mild shortness of breath and nausea, he is well-appearing on exam with soft abdomen without severe/ significant tenderness, my differential includes kidney stone, diverticulitis, gastroenteritis, labs and CT are obtained, Lab significant for slightly elevated LFTs however these do appear to be baseline for him, CT unfortunately does show a splenic infarct. given this I will also obtain a CTA to rule out PE in case the patient is hypercoagulable. thankfully no PE seen on CT. On re-evaluation patient is resting more comfortably, Findings discussed with patient and at bedside, I have asked him to follow up with primary care doctor, with strict Return precautions. patient and at bedside agreeable to this plan. Lab Data 05/26/24 01:35 05/26/24 01:35 Labs: Lab Results 05/26/24 05/26/24 Range/Units 01:35 04:07 WBC 9.0 (4.5-10.0) K/mm3 RBC 4.76 (4.6-6.20) M/mm3 Hgb 15.5 D (14.0-18.0) g/dL Hct 45.0 (42.0-52.0) % MCV 94.5 (80-100) fl MCH 32.6 (26-34) pg MCHC 34.4 (32-36) g/dl RDW 12.7 (11.5-14.5) % Plt Count 143 L (150-375) k/mm3 MPV 9.9 (7.4-10.4) fl Immature Gra
[2024-05-26 02:14] LABS: Band Neutrophils Percent 3 % (0-6); Basophils Absolute Manual 0.18 K/mm3 (0.0-0.1); Basophils Percent Manual 2 % (0-1); Eosinophils Absolute Manual 0.27 K/mm3 (0.02-0.50); Eosinophils Percent Manual 3 % (0-4); Lymphocytes Absolute Manual 3.78 K/mm3 (1.1-4.5); Monocytes Absolute Manual 0.45 K/mm3 (0.1-0.90); Monocytes Percent Manual 5 % (3-9); Myelocytes Percent 2 %; Neutrophils Absolute Manual 4.14 K/mm3 (1.3-6.7); Neutrophils Percent Manual 43 % (46-73); Total Cells Counted 100
[2024-05-26 02:15] LABS: Platelet Estimate Slightly Decreased (Adequate); Smudge Cells MODERATE
[2024-05-26 02:16] LABS: Atypical Lymphocytes Present; Schistocytes None Seen
[2024-05-26] MEDS: ONDANSETRON INJ 4 MG/2 ML VIAL IV PUSH (02:37)
[2024-05-26] MEDS: LACTATED RINGERS 1,000 ML 999 ML IV CONT (02:37)
[2024-05-26 04:10] LABS: INR 1.1; Prothrombin Time 14.7 Seconds (11.1-14.7)
[2024-05-26 04:27] VITALS: BP 132/94; PULSE 93; RESP 16; O2SAT 97
[2024-05-26] MEDS: MORPHINE SULFATE (*CRX) 4 MG/ML INJ IV PUSH (04:31)
== END 2024-05-26 04:38 | disposition home or self-care (01) ==
PROVIDERS: Emergency Provider Emergency Medicine; PCP Family Medicine
DX: D73.5 Infarction of spleen (principal); K21.9 Gastro-esophageal reflux disease without esophagitis; G47.33 Obstructive sleep apnea (adult) (pediatric); Z87.891 Personal history of nicotine dependence; Z79.899 Other long term (current) drug therapy; K76.0 Fatty (change of) liver, not elsewhere classified; N20.0 Calculus of kidney
CPT/HCPCS: 36415; 71275; 74177; 80053; 81001; 83605; 83690; 85025; 85610; 85730; 96361; 96374; 96375; 99284; J2270; J2405; J7120; Q9967

== ENCOUNTER 2024-08-21 09:31 | Day surgery (SDC) | payer OTHER, SELFPAY ==
[2024-07-10 13:31] VITALS: BMI 33.8
[2024-08-17 08:54] VITALS: BMI 33.8
--- NOTE | ~2024-08-21 | XR_ITS ---
EXAMINATION: XR fluoroscopy no charge DATE: 08/21/2024 10:35 RETORT LOADER INDICATION: DIAG/PROG LEFT GENICULAR NERVE BLOCK x3,VASTUS INTERMEDIUS N . TECHNIQUE: 8 fluoroscopic images of the left knee were obtained during diagnostic/prognostic left gen icular nerve block, vastus intermedius intermedius nerve block, performed by Tavon Fisher MD. I w as not present during the procedure. Fluoroscopy exposure time was 18.6 seconds. Air Kerma 0.90 mGy. COMPARISON: None FINDINGS/IMPRESSION: Fluoroscopic documentation of diagnostic/prognostic left genicular nerve block, vastus intermedius in termedius nerve block. Please refer to the operative note for complete procedural details . Reviewed, dictated and finalized at location K. RT LOADER
--- NOTE | 2024-08-21 09:29 | PM.HPGS ---
History of Present Illness History of Present Illness Consent: Risks, benefits, and alternatives have been discussed and questions answered. Patient agrees to proceed with procedure. Chief complaint: Unilateral Primary Osteoarthritis, Left Knee Pain Narrative: Balaji Davies is a 49 year old male with chronic, recalcitrant and disabling Left knee pain secondary to degenerative osteoarthritis with failure to respond to aggressive conservative measures including PT, oral and topical analgesics, opioid and nonopioid analgesics, rest, time and activity/behavioral modification over the past 1-2 years who presents for diagnostic/prognostic genicular/vastus intermedius nerve blocks of the left knee joint under fluoroscopic guidance and with contrast control. Review of Systems Review of Systems: Patient denies any new infectious, allergic, cardiopulmonary, neurologic or constitutional symptoms or changes in activity tolerance or exercise capacity including new or progressive SOB/CHATMAN, peripheral edema, productive cough, dysuria, nausea/vomiting, diarrhea, weight change, fevers/chills/night sweats, new or progressive neurologic deficit, cognitive or mood changes since last seen, except as documented in the HPI. All systems reviewed & are unremarkable except as noted in HPI and below PMFSH Past Medical History Medical History (Updated 08/21/24 @ 09:32 by Tavon Fisher MD) Primary osteoarthritis of left knee IFG (impaired fasting glucose) [place]IR[place] (obstructive sleep apnea) GERD (gastroesophageal reflux disease) Osteochondral defect of talus Family History Family History Sibling Diabetes mellitus Mother Family history of lung cancer Family history of malignant neoplasm of breast in first degree relative Social History Social History Years smoked: 1 Smoking status: Never smoker Second hand tobacco smoke exposure: Yes Smoking end date: 09/12/90 Additional smoking assessment comments: BRIEF TIME IN THE 80'S Alcohol intake: current Alcohol use details: once a month Substance use: current Substance use type: marijuana Other substance usage details: uses for left knee pain relief Do You Feel Safe in your Home?: Yes Lack of Transportation: No Lack of Food: Never True Current Housing: I Have Housing Concerned About Future Housing: No Difficulty Paying Gas/Electric Bills: No Difficulty Paying for Meds: No Currently Unemployed: No Difficulty w/ Childcare or Family Care: No Living arrangements: with family Occupation/Education: other Gender identity (if verbalized by the patient): Male Spiritual care concerns: No Meds Home Medications and Allergies Home Medications ?Medication ?Instructions ?Recorded ?Confirmed ?Type fluoxetine 20 mg capsule 20 mg PO DAILY #30 caps 05/11/24 08/17/24 Rx lisinopril 5 mg tablet 5 mg PO DAILY #30 tabs 05/11/24 08/17/24 Rx acetaminophen 500 mg tablet 1,000 mg (2 x 500 mg) PO Q6H PRN 05/26/24 08/17/24 Rx (Tylenol Extra Strength) pain #50 tabs amlodipine 10 mg tablet 10 mg PO DAILY #90 tabs 06/18/24 08/17/24 Rx ondansetron HCl 4 mg tablet 4 mg PO Q6H PRN nausea and 06/18/24 08/17/24 Rx vomiting #14 tabs pantoprazole 40 mg tablet,delayed 40 mg PO QAM #90 tabs 06/18/24 08/17/24 Rx release meloxicam 15 mg tablet 15 mg PO DAILY 30 days #30 tabs 06/26/24 08/17/24 Rx albuterol sulfate 90 mcg/actuation 1 puff inhalation Q4-6H PRN 07/23/24 08/17/24 Rx aerosol inhaler shortness of breath or wheezing #8.5 grams buspirone 7.5 mg tablet 7.5 mg PO TID #270 tabs 08/10/24 08/17/24 Rx Allergies Allergy/AdvReac Type Severity Reaction Status Date / Time No Known Allergies Allergy Verified 08/17/24 08:52 Exam Narrative: The patient's physical exam is essentially unchanged from prior examination on 06/26/2024. Specifically, patient demonstrates normal lung capacity, tidal volume and respiratory rate without wheezes, crackles, rales or rubs. Heart rate and rhythm are regular without murmurs, gallops or rubs. No JVD. Pulses 2+ globally without increasing peripheral edema. AAOx3, NC/AT without acute distress or altered consciousness. Speech, cognition, mood and judgment at baseline and within normal limits. Assessment and Plan Assessment and plan (1) Left knee pain: Code(s): M25.562 - Pain in left knee Status: Acute (2) Primary osteoarthritis of left knee: Code(s): M17.12 - Unilateral primary osteoarthritis, left knee Status: Acute Plan proceed as planned with genicular/vastus intermedius nerve blocks of the left knee under fluoroscopic guidance for diagnostic/ prognostic purposes
--- NOTE | 2024-08-21 09:32 | WPDHPUPDATE1 ---
History and Physical Update Update Date/Time: 08/21/24 09:32 History and Physical has been reviewed, including an updated exam of the patient. There are NO changes in the patient's condition. Risks, benefits, and alternatives have been discussed and questions answered. Patient agrees to proceed with procedure.
--- NOTE | 2024-08-21 09:33 | P.OP_ITS ---
Procedure Note - Detailed Date of Procedure 08/21/24 Pre-op Diagnosis Unilateral Primary Osteoarthritis, Left Knee Pain Post-op Diagnosis Same Procedure Performed Diagnostic Blockade of the left Superior Medial, Inferior Medial and Superior Lateral Genicular Nerves, Vastus Intermedius nerve under Fluoroscopic Guidance (4 nerves blocked). Surgeon Tavon Fisher MD Anesthesia Local Description of Procedure INFORMED CONSENT: Risks, benefits and alternatives to the procedure were discussed in detail with the patient who expressed explicit understanding and consent to proceed. Patient was informed verbally and in written form regarding the risks associated with the procedure including the low risk of serious infection, bleeding/bruising, allergic reaction, nerve injury, paralysis, procedural site pain or discomfort, worsening pain and/or mobility, failure to treat and disfigurement. The patient expressed explicit understanding and consent to proceed. All materials required for the procedure were available prior to procedure start. Site and side was marked prior to procedure and confirmed in the presence of the patient. PROCEDURE IN DETAIL: The patient was brought to the procedural suite and placed in the supine position. Patient was made comfortable with use of pillows under the head/shoulder, knees and ankles. Skin overlying anterior, medial and lateral surface of the knee joint on the left side was prepared broadly with ChloraPrep applicator and draped in a sterile manner. Aseptic technique was used throughout. The intersection between the femoral shaft and the medial femoral condyle, lateral femoral condyle and between the medial tibial plateau and tibial shaft were visualized in the AP view, as well as the line bisecting the femur and perpendicular to the short axis of the joint space 6cm proximal to the superior border of the patella with the knee partially flexed at 120 degrees. Local anesthesia was established by infiltration with approximately 3 mL of 2% lidocaine via a 1-1/2 inch 27-gauge needle at the skin and soft tissues overlyi ng each site. A 25-gauge 3.5 inch quincke spinal needle was advanced until the needle tip contacted periosteum at each location, and was then walked off medially to approximate the position of the Superior and Inferior Medial Genicular nerves or laterally to approximate the position of the Superior Lateral Genicular nerve, and just superficial to femoral periosteum 6cm proximal to the patella to block the Vastus intermedius nerve. Needle depth was verified in the lateral view revealing appropriate needle positioning at each location. 0.5ml of Omnipaque 300 contrast medium was injected at each site confirming appropriate perineural spread of contrast without evidence of intravascular or intra-articular spread. After repeat negative aspiration, 0.5-1.0ml of 0.5% PF Bupivacaine was injected at each site to block the respective nerves. Needle was removed completely intact without difficulty. Images were saved and documented in the patient chart. Patient's skin was cleansed and sterile bandage applied. The patient tolerated the procedure well. The patient was transported to the recovery area in stable condition where they were observed for an appropriate amount of time prior to discharge, without evidence of complication. Patient was instructed on the appropriate completion of a pain diary over the next 12-24 hours. The patient was instructed to avoid excessive activity for the next 48 hours, including climbing and frequent use of stairs. Showers only for 48 hours. They were instructed not to drive or operate heavy machinery for 24 hours. They are to monitor for severe headaches, fevers, chills, night sweats, erythema/swelling at the site or any other signs of infection, bleeding/bruising, bowel or bladder changes as well as new pain, weakness or numbness in the upper or lower extremity. Should they notice these changes, they are instructed to call our office immediately or report directly to the nearest Emergency Department if no answer or if after posted office hours. CONTRAST WASTED: 28 mL Omnipaque 300. Complications None Condition Stable Disposition Same day [facility] Billing Surgery - Charge Forward: Surgery Billing
[2024-08-21 10:12] VITALS: BP 143/103; PULSE 65; RESP 16; TEMP 36.9; O2SAT 99
[2024-08-21 10:25] VITALS: BP 149/96
[2024-08-21 10:47] VITALS: BP 172/106; PULSE 66; RESP 12; O2SAT 98
[2024-08-21 10:53] VITALS: BP 156/115; PULSE 69; RESP 14; O2SAT 96
[2024-08-21] MEDS: LIDOCAINE HCL 1% PF INJ 5 ML VIAL INFILTRATE (10:53)
[2024-08-21] MEDS: BUPivacaine HCL 0.5% 10 ML AMP INFILTRATE (10:53)
[2024-08-21 11:00] VITALS: BP 160/108; PULSE 68; RESP 20; O2SAT 97
== END 2024-08-21 11:15 | disposition home or self-care (01) ==
PROVIDERS: PCP Family Medicine; Visit Provider Anesthesiology Pain Medicine
PROC: (CPT 64454; principal; 2024-08-21 12:00)
DX: M17.12 Unilateral primary osteoarthritis, left knee (principal); M25.562 Pain in left knee
CPT/HCPCS: 64454; 99199